=== PATIENT | female | born 1975 | race Caucasian/White ===

== ENCOUNTER 2023-11-13 15:02 | Emergency (ER) | payer OTHER, SELFPAY ==
--- NOTE | ~2023-11-13 | XR_ITS ---
EXAMINATION: XR CHEST CLINICAL INFORMATION: Shortness of breath. COMPARISON: None available. TECHNIQUE: Frontal view of the chest was obtained. FINDINGS: Prominent cardiomediastinal silhouette. Central vascular engorgement. Increased diffuse interstitial markings. No focal consolidation, pleural effusion or pneumothorax. No acute osseous findings. Visualized upper abdomen is within normal limits. XR/XR chest 1V IMPRESSION: Central vascular engorgement and diffuse interstitial prominence that could indicate pulmonary edema in the context of an enlarged cardiomediastinal silhouette. However, an infectious/inflammatory process of the small airways cannot be excluded and could manifest similarly. Recommend clinical correlation. No consolidation or pleural effusion.
--- NOTE | 2023-11-13 15:03 | ECG_ITS ---
Test Reason : CHEST PAIN Blood Pressure : / mmHG Vent. Rate : 067 BPM Atrial Rate : 067 BPM P-R Int : 162 ms QRS Dur : 078 ms QT Int : 382 ms P-R-T Axes : 055 039 031 degrees QTc Int : 403 ms Normal sinus rhythm with sinus arrhythmia Normal ECG When compared with ECG of 20-JUN-2007 10:04, No significant change was found Referred By: Cate Blanchard Electronically Signed By:ROLANDO WEIR MD
[2023-11-13 15:15] VITALS: BP 165/81; PULSE 76; RESP 20; TEMP 36.2; O2SAT 97; BMI 61.6
--- NOTE | 2023-11-13 15:21 | ED_ITS ---
HPI - Chest Pain General Chief Complaint: Chest Pain Stated Complaint: Chest pain Time Seen by Provider: 11/13/23 22:46 Source: patient Mode of arrival: ambulatory Limitations: no limitations History of Present Illness HPI narrative: 48-year-old female diabetes mellitus, hypertension hyperlipidemia who presents emergency department for evaluation of chest. Patient states that she was driving when she had a sudden onset of tightness in the left side of her chest. She states the pain was initially 7/10. She states the pain was worse with breathing with movement and with bending down. She had associated nausea. While the patient was waiting to be got worse and became greater than 10/10. She states very numb. She also felt short of breath. She denied fever, chills, cough, vomiting or diarrhea. She has not noticed any increased swelling or pain in her lower extremities. She has not gone on any long trips. She has not on any estrogen supplements. Related Data Allergies Allergy/AdvReac Type Severity Reaction Status Date / Time penicillin Allergy Unknown Unknown Uncoded 11/13/23 15:20 seasonal allergies Allergy Unknown Shortness Uncoded 11/13/23 15:20 of Breath Review of Systems 2 Review of Systems: Yes all other systems are reviewed and are negative COUNTS INCLUDE 234 BEDS AT THE [facility] Past Medical History COUNTS INCLUDE 234 BEDS AT THE [facility] Narrative: Social history: The patient does not smoke cigarettes. She occasionally drinks alcohol. She does smoke marijuana daily. She also has marijuana edibles occasionally. Social History Social History Advance Directives: No Advance Directives Information Provided: No Do you have a plan to hurt others: No Plan Physical Exam 2 Vital Signs: Vital Signs: Last Vital Signs Temp 97.8 F 11/13/23 22:45 Pulse 82 11/13/23 22:45 Resp 20 11/13/23 22:45 BP 155/86 H 11/13/23 22:45 Pulse Ox 97 11/13/23 22:45 O2 Del Method Room Air 11/13/23 22:45 BMI result Body Mass Index 61.6 Vital signs did reveal an elevated blood pressure of 155/86 Exam: General: Awake, alert in no distress, weight 147 kg, elevated BMI 61.6. Head: Normocephalic, atraumatic EENT: PERRL, Lids normal, sclera normal, conjunctiva normal, nose normal , ears normal, throat without erythema or exudates Neck: Supple, no adenopathy Lung: breath sounds symmetric, no wheezing, rales or rhonchi Chest: symmetric movement, tenderness with palpation of the left costochondral joints and left anterior chest wall Heart: regular rate and rhythm, normal S1, S2 no murmurs or rubs Abdomen: soft, non-tender, nondistended, normal bowel sounds Back: no vertebral tenderness, no CVAT Extremities: no deformities, moves all extremities symmetrically Neuro: Awake, alert, oriented, normal speech, moves all extremities symmetrically Psych: Pleasant, cooperative Course Course Course Narrative: This is an RME: Additional HPI, ROS, PE not included below will be deferred to primary provider. 48 yo f presents w/ fatigue, malaise, cp, sob X 30 mins. Never has happened to her before like this usually just chest discomfort that goes away. Medical Decision Making Medical Decision Making [facility] Narrative: 48 year old female with a history of hypertension, diabetes mellitus, hyperlipidemia who presents emergency department for evaluation sudden onset of chest pain while she was driving. The patient's pain was located in the left side of her chest. The pain is been constant since onset but waxing and waning in intensity. While she was waiting in the emergency department the patient's pain increased 10/10. Patient's vital signs did reveal elevated blood pressure. Physical examination did tenderness palpation of her left costochondral joints and left anterior chest wall. Differential diagnosis: ?Includes but is not limited to ischemia, costochondritis, musculoskeletal pain, pneumothorax, pulmonary embolism Following evaluation was ordered: High sensitive troponin I x2, BNP, CBC, INR, COVID-19, influenza, RSV, EKG x2, chest x-ray Course: 23:49 My interpretation patient's laboratory evaluation is as follows: CBC was normal. CMP was unremarkable except for an elevated glucose of 151. BNP was normal at 26. First troponin was below detectable limits, 3 hour repeat troponin was also below detectable limits. COVID-19, influenza and RSV were negative. Patient had 2 EKGs which revealed no evidence for myocardial ischemia or infarction. Chest x-ray on my interpretation was no acute disease. Radiologist was concerned that the patient might have congestive heart failure however the patient's BNP was normal making congestive heart failure unlikely. Patient did have significant chest wall tenderness as well as tenderness palpation over costochondral joints therefore I suspect that her symptoms are caused by costochondritis and I did discuss this with her and her . Tylenol and ibuprofen for pain. She was given printed and verbal instructions and discharged home. Admission/Observation Consideration of admission/observation: Escalation of care including admission/observation considered Lab Data MDM Lab Attestation statement: I reviewed the patient's lab results. 11/13/23 15:55 11/13/23 15:55 Labs: Lab Results 11/13/23 11/13/23 Range/Units 15:55 18:01 WBC 8.2 (4.8-10.8) X10*3/uL RBC 4.93 (4.20-5.50) X10*6/uL Hgb 12.6 (12.0-16.0) g/dl Hct 38.1 (37.0-47.0) % MCV 77.3 L (80.0-98.0) fL MCH 25.6 L (27.0-33.0) pg MCHC 33.1 (31.0-35.0) g/dl RDW 17.8 H (11.0-16.0) % Plt Count 277 (160-400) X10*3/uL MPV 9.7 (9.4-12.3) fL Immature Gran % (Auto) 0.5 H (0.0-0.4) % Neut % (Auto) 66.6 (45-73) % Lymph % (Auto) 23.3 (20-40) % Boyle % (Auto) 7.5 (2-11) % Eos % (Auto) 1.7 (0-4) % Baso % (Auto) 0.4 (0-2) % Lymph # (Auto) 1.9 (1.2-4.9) X10*3/uL Boyle # (Auto) 0.6 (0.1-1.2) X10*3/uL Eos # (Auto) 0.1 (0.0-0.4) X10*3/uL Baso # (Auto) 0.0 (0.0-0.2) X10*3/uL Abs Immat Gran (auto) 0.04 H (0.00-0.03) X10*3/uL Absolute Neuts (auto) 5.4 (2.0-8.3) x10*3/uL Absolute Nucleated RBC 0.000 (0.0-0.012) X10*3/uL Nucleated RBC % (auto) 0.0 (0.0-0.2) /100WBC PT 11.5 (11.1-13.3) SEC INR 0.9 (0.9-1.1) Sodium 137 (135-145) mmol/L Potassium 3.5 (3.3-5.1) mmol/L Chloride 104 (96-108) mmol/L Carbon Dioxide 25 (22-29) mmol/L Anion Gap 12 (12-20) BUN 13 (9-16) mg/dL Creatinine 0.66 (0.5-1.4) mg/dL Estim Creat Clear Calc 141.4 Estimated GFR > 60 Random Glucose 151 H (60-115) mg/dL Calcium 9.4 (8.4-10.2) mg/dL Magnesium 1.8 (1.6-2.6) mg/dL Total Bilirubin 0.4 (0.0-1.0) mg/dL AST 23 (5-31) U/L ALT 36 H (0-31) U/L Alkaline Phosphatase 100 (39-117) U/L Troponin I High Sens < 2.7 < 2.7 (<3.5-17.0) ng/L B-Natriuretic Peptide 26 (<100) pg/mL Total Protein 7.4 (6.5-8.0) g/dL Albumin 3.9 (3.5-5.0) g/dL Influenza Type A (PCR) NEGATIVE (Negative) Influenza Type B (PCR) NEGATIVE (Negative) RSV RNA Qual (PCR) NEGATIVE (Negative) SARS-CoV-2 RNA (RT-PCR) NEGATIVE (Negative) Independent Interpretation I performed an independent interpretation of an: EKG Interpretation: EKG 1. Done at 15:11 hours was interpreted by me as follows: Normal sinus rhythm with sinus arrhythmia with a rate of 67, normal TN interval, QRS duration QTC interval, no ST segment elevation, no ST segment depression, no T-wave abnormalities, no PACs, no PVCs. EKG 2. Done at 19:50 hours is as follows: Normal sinus rhythm with a rate of 70, normal TN intervals, QRS duration QTC interval, no ST segment elevation, no ST segment depression, no T-wave abnormalities, no PACs, no PVCs, no significant change from the 1st EKG. My independent interpretation patient's chest x-ray is as follows: No acute disease Radiology Impression Discussion of test interpretation with radiology: I have reviewed the radiologist's reading. Radiologist Impression: XR chest 1V IMPRESSION: Central vascular engorgement and diffuse interstitial prominence that could indicate pulmonary edema in the context of an enlarged cardiomediastinal silhouette. However, an infectious/inflammatory process of the small airways cannot be excluded and could manifest similarly. Recommend clinical correlation. No consolidation or pleural effusion. Dictated By: Monique Mcfadden Independent Historian Clinical information obtained from an independent historian. History obtained from or confirmed by: Spouse Chronic Conditions Patient?s care impacted by: Diabetes and Hypertension Discharge Plan Discharge Clinical Impression: Chest pain, Acute costochondritis Patient Disposition: Home, Self-Care Instructions: Costochondritis (ED) Additional Instructions: Your blood work was unremarkable Your high sensitive troponin I (a marker of heart damage) was below detectable limits and this was repeated 3 hours later and your 2nd troponin test was below detectable limits as well. This is reassuring and suggests that your chest pain was not caused by a heart attack or heart injury. Your 2 EKGs that you had in the emergency department were normal as well. Your chest x-ray did not reveal any evidence for pneumonia At this time, I believe that your pain is caused by inflammation of the joints of your chest, this is called costochondritis Take ibuprofen 200 mg pills, 2 pills every 6 hours as needed for pain or fever. Take Tylenol (acetaminophen) 500 mg pills, 2 pills every 6 hours as needed for pain or fever. Follow-up with your doctor in 2 days. Please return to the emergency department if your symptoms get worse or if you develop any symptoms that are concerning to you. Print Language: Kazakh
[2023-11-13 16:01] LABS: MANUAL DIFF FLAG NO
[2023-11-13 16:02] LABS: Basophils Percent Auto 0.4 % (0-2); Eosinophils Absolute Auto 0.1 X10*3/uL (0.0-0.4); Eosinophils Percent Auto 1.7 % (0-4); Hematocrit 38.1 % (37.0-47.0); Hemoglobin 12.6 g/dl (12.0-16.0); Imm Gran Abs Auto 0.04 X10*3/uL (0.00-0.03); Imm Gran Pct Auto 0.5 % (0.0-0.4); Lymphocytes Absolute Auto 1.9 X10*3/uL (1.2-4.9); Lymphocytes Percent Auto 23.3 % (20-40); Mean Corpuscular HGB Conc 33.1 g/dl (31.0-35.0); Mean Corpuscular Hemoglobin 25.6 pg (27.0-33.0); Mean Corpuscular Volume 77.3 fL (80.0-98.0); Mean Platelet Volume 9.7 fL (9.4-12.3); Monocytes Absolute Auto 0.6 X10*3/uL (0.1-1.2); Monocytes Percent Auto 7.5 % (2-11); Neutrophils Absolute Auto 5.4 x10*3/uL (2.0-8.3); Neutrophils Percent Auto 66.6 % (45-73); Platelet Count 277 X10*3/uL (160-400); Red Blood Count 4.93 X10*6/uL (4.20-5.50); Red Cell Distribution Width 17.8 % (11.0-16.0); White Blood Count 8.2 X10*3/uL (4.8-10.8)
[2023-11-13 16:07] LABS: INTERNATIONAL NORM RATIO 0.9 (0.9-1.1); Prothrombin Time 11.5 SEC (11.1-13.3)
[2023-11-13 16:17] LABS: Alanine Aminotransferase 36 U/L (0-31); Albumin Level 3.9 g/dL (3.5-5.0); Alkaline Phosphatase 100 U/L (39-117); Anion Gap 12 (12-20); Aspartate Amino Transferase 23 U/L (5-31); Bilirubin Total 0.4 mg/dL (0.0-1.0); Blood Urea Nitrogen 13 mg/dL (9-16); Calcium 9.4 mg/dL (8.4-10.2); Carbon Dioxide 25 mmol/L (22-29); Chloride 104 mmol/L (96-108); Creatinine Clr Calc Pharmacy 141.4; Estimated Glomerular Filt Rate > 60; Glucose Random 151 mg/dL (60-115); Magnesium 1.8 mg/dL (1.6-2.6); Potassium 3.5 mmol/L (3.3-5.1); Sodium 137 mmol/L (135-145); Total Protein 7.4 g/dL (6.5-8.0)
[2023-11-13 16:24] LABS: B Type Natriuretic Peptide 26 pg/mL (<100)
[2023-11-13 16:27] LABS: Troponin-I High Sensitivity < 2.7 ng/L (<3.5-17.0)
[2023-11-13 16:47] LABS: Influenza A PCR NEGATIVE (Negative); Influenza B PCR NEGATIVE (Negative); Resp Syncy Virus RNA Qual PCR NEGATIVE (Negative); SARS COV2 PCR INHOUSE NEGATIVE (Negative)
--- NOTE | 2023-11-13 17:31 | ECG_ITS ---
Test Reason : CHEST PAIN WORSE Blood Pressure : / mmHG Vent. Rate : 070 BPM Atrial Rate : 070 BPM P-R Int : 172 ms QRS Dur : 080 ms QT Int : 380 ms P-R-T Axes : 057 037 033 degrees QTc Int : 410 ms Normal sinus rhythm Normal ECG When compared with ECG of 13-NOV-2023 15:11, No significant change was found Referred By: Cate Blanchard Electronically Signed By:ROLANDO WEIR MD
[2023-11-13 18:33] LABS: Troponin-I High Sensitivity < 2.7 ng/L (<3.5-17.0)
[2023-11-13 19:21] VITALS: BP 164/86; PULSE 69; RESP 20; TEMP 36.8; O2SAT 98
[2023-11-13 22:45] VITALS: BP 155/86; PULSE 82; RESP 20; TEMP 36.6; O2SAT 97
[2023-11-13 23:48] VITALS: BP 00/00; PULSE 0; RESP 0; TEMP -17.7; TEMP 0
== END 2023-11-13 23:50 | disposition home or self-care (01) ==
PROVIDERS: Physician Assistant; Emergency Provider Emergency Medicine Emergency Medical Services; PCP Internal Medicine
DX: M94.0 Chondrocostal junction syndrome [Tietze] (principal); I10 Essential (primary) hypertension; E11.9 Type 2 diabetes mellitus without complications; Z03.818 Encounter for observation for suspected exposure to other biological agents ruled out
CPT/HCPCS: 0241U; 36415; 71045; 80053; 83735; 83880; 84484; 85025; 85610; 93005; 99283; 99284

== ENCOUNTER → 2023-11-13 15:03 | Outpatient (BNV) | payer OTHER, SELFPAY | PROVIDERS: Emergency Provider Emergency Medicine Emergency Medical Services; PCP Internal Medicine; Visit Provider Internal Medicine Cardiovascular Disease | DX: R07.9 Chest pain, unspecified (principal); I49.9 Cardiac arrhythmia, unspecified | CPT/HCPCS: 93010 ==